=== PATIENT | female | born 1940 | race African-American/Black ===

== ENCOUNTER 2019-04-15 15:05 | Observation (INO) ==
[2019-04-15] MEDS ORDERED: NITROGLYCERIN 2% OINT 1 INCH/GM PACK TOP STA (16:12)
[2019-04-15] MEDS ORDERED: ASPIRIN 325 MG TABLET PO STA (16:12)
[2019-04-15] MEDS ORDERED: MORPHINE 4 MG/1 ML VIAL IV STA (16:12)
[2019-04-15] MEDS ORDERED: METHOCARBAMOL 1,000 MG/10 ML VIAL IV STA (16:12)
[2019-04-15] MEDS ORDERED: ONDANSETRON 4 MG/2 ML VIAL IV STA (16:12)
[2019-04-15 17:21] LABS: Basophils # 0.1 10*3/uL (0.0-0.2); Basophils % 0.9 % (0.0-0.8); Eosinophils # 0.1 10*3/uL (0.0-0.87); Eosinophils % 1.6 % (0.00-10.9); Hemoglobin 12.6 GM/DL (12.0-16.0); Immature Granulocytes % 0.5 %; Immature Granulocytes Absolute 0.03 #; Lymphocytes # 1.5 10*3/uL (1.4-4.0); Lymphocytes % 26.4 % (21.3-54.2); Mean Corpuscular HGB Conc 32.3 GM/DL (32-36); Mean Corpuscular Volume 95.1 FL (87-102); Mean Platelet Volume 9.8 FL (9.6-12.0); Monocytes % 6.4 % (1.7-12.7); Neutrophils % 64.2 % (38.7-73.9); Platelet Count 294 T/CUMM (130-400); Red Cell Distribution Width 13.9 % (9.3-17.3); White Blood Count 5.7 T/CUMM (4-12)
[2019-04-15 17:41] LABS: Alanine Aminotransferase 18 U/L (13-56); Albumin 3.5 G/DL (3.4-5.0); Alkaline Phosphatase 97 U/L (45-117); Aspartate Amino Transferase 15 U/L (0-37); Bilirubin,Total < 0.39 MG/DL (0.2-1.0); Blood Urea Nitrogen 14 MG/DL (7-18); Calcium 8.8 MG/DL (8.5-10.1); Glucose 142 MG/DL (74-106); Osmolality,Calculated 275.8 MOS/KG (273-304); Total Protein 8.2 G/DL (6.4-8.3); Troponin I < 0.015 NG/ML (0.00-0.045)
[2019-04-15] MEDS ORDERED: ATORVASTATIN 40 MG TABLET PO SCH (21:12)
[2019-04-15] MEDS: INDOMETHACIN 25 MG CAPSULE PO SCH (22:20)
[2019-04-16] MEDS ORDERED: LEVOTHYROXINE 150 MCG TABLET PO SCH (06:00)
[2019-04-16] MEDS ORDERED: PANTOPRAZOLE 40 MG TABLET PO SCH (07:30)
[2019-04-16] MEDS: INDOMETHACIN 25 MG CAPSULE PO SCH (08:42)
[2019-04-16] MEDS ORDERED: ASPIRIN CHEW 81 MG TABLET PO SCH (09:00)
[2019-04-16] MEDS ORDERED: LOSARTAN 50 MG TABLET PO SCH (09:00)
[2019-04-16 12:21] VITALS: BP 134/76
== END 2019-04-16 15:21 | disposition home or self-care (01) ==
LOC: N.TELES 15:05 → N.ED 15:05 → N.TELES 20:47
PROVIDERS: ADMIT Internal Medicine; ATTEND Internal Medicine

== ENCOUNTER 2022-03-23 00:40 | Observation (INO) ==
[2022-03-23 01:01] LABS: Basophils # 0.1 10*3/uL (0.0-0.2); Basophils % 0.6 % (0.0-0.8); Eosinophils # 0.2 10*3/uL (0.0-0.87); Eosinophils % 2.3 % (0.00-10.9); Hematocrit 34.1 VOL% (35.7-47.0); Hemoglobin 10.9 GM/DL (12.0-16.0); Immature Granulocytes % 0.8 %; Immature Granulocytes Absolute 0.08 #; Lymphocytes # 2.3 10*3/uL (1.4-4.0); Lymphocytes % 23.9 % (21.3-54.2); Mean Corpuscular Volume 90.9 FL (87-102); Mean Platelet Volume 9.1 FL (9.6-12.0); Monocytes # 0.9 10*3/uL (0.11-0.8); Monocytes % 9.1 % (1.7-12.7); Neutrophils % 63.3 % (38.7-73.9); Platelet Count 372 T/CUMM (130-400); Red Blood Count 3.75 MC/CUMM (3.8-5.5); White Blood Count 9.5 T/CUMM (4-12)
[2022-03-23 01:50] LABS: Alanine Aminotransferase 21 U/L (13-56); Albumin 3.8 G/DL (3.4-5.0); Alkaline Phosphatase 96 U/L (45-117); Aspartate Amino Transferase 18 U/L (0-37); Bilirubin,Total < 0.39 MG/DL (0.20-1.00); Blood Urea Nitrogen 30 MG/DL (7-18); Calcium 9.4 MG/DL (8.5-10.1); Carbon Dioxide 24 MMOL/L (21-32); Chloride 106 MMOL/L (98-107); Glucose 232 MG/DL (74-106); Osmolality,Calculated 289.5 MOS/KG (273-304); Potassium 3.9 MMOL/L (3.5-5.1); Sodium 139 MMOL/L (136-145)
[2022-03-23] MEDS ORDERED: SODIUM CHLORIDE 0.9% 1,000 ML IV STA (02:30)
[2022-03-23] MEDS ORDERED: MORPHINE 2 MG/1 ML SYRINGE IV STA (02:31)
[2022-03-23] MEDS ORDERED: ONDANSETRON 4 MG/2 ML VIAL IV ONE (02:31)
[2022-03-23] MEDS ORDERED: fentaNYL 100 MCG/2 ML VIAL IV STA (02:49)
[2022-03-23] MEDS ORDERED: DEXTROSE 10% 250 ML BAG IV PRN (03:28)
[2022-03-23] MEDS ORDERED: DOCUSATE SODIUM 100 MG CAPSULE PO PRN (03:28)
[2022-03-23] MEDS ORDERED: BISACODYL 5 MG TABLET PO PRN (03:28)
[2022-03-23] MEDS ORDERED: hydrALAZINE 20 MG/1 ML VIAL IV PRN (03:28)
[2022-03-23] MEDS ORDERED: GLUCAGON 1 MG VIAL IM PRN (03:28)
[2022-03-23] MEDS: SODIUM CHLORIDE 0.9% 1,000 ML IV SCH ×2 (04:17→13:52)
[2022-03-23] MEDS ORDERED: ENOXAPARIN 100 MG/ML SYRINGE SUBCUT ONE (05:32)
[2022-03-23 06:43] LABS: Bacteria,Urine Occasional /HPF (Few); Mucus,Urine Occasional /LPF (Occasional); RBC,Urine 2 /HPF (0-4); Squamous Epithelial Cell,Urine Occasional /HPF (0-10)
[2022-03-23 06:44] LABS: Bilirubin,Urine Negative (Negative); Blood, Urine Small mg/dL (Negative); Glucose,Urine (UA) >1000 mg/dL (Negative); Ketones,Urine Negative (Negative); Nitrite,Urine Negative (Negative); Protein,Urine 30 mg/dL (Negative); Urine Appearance Clear (Clear); Urine Color Yellow (Yellow); Urine Urobilinogen 0.2 eU/dL (<2.0); Urine pH 6.5 (4.5-8.0)
[2022-03-23] MEDS: INSULIN LISPRO 100 UNIT/ML SUBCUT SCH ×4 (07:47→21:57)
[2022-03-23] MEDS ORDERED: LEVOFLOXACIN INJ 500 MG/100 ML PREMIX IV ONE (09:00)
[2022-03-23] MEDS: PANTOPRAZOLE 40 MG TABLET PO SCH (09:19)
[2022-03-23] MEDS: metroNIDAZOLE INJ 500 MG/100 ML PREMIX IV SCH ×2 (10:35→17:08)
[2022-03-23] MEDS: ACETAMINOPHEN 325 MG TABLET PO PRN (12:23)
[2022-03-23] MEDS: ONDANSETRON 4 MG/2 ML VIAL IV PRN (13:07)
[2022-03-23] MEDS ORDERED: ENOXAPARIN 30 MG/0.3 ML SYRINGE SUBCUT SCH (21:00)
[2022-03-23] MEDS: HYDROmorphone 1 MG/1 ML SYRINGE IV PRN (22:36)
[2022-03-24] MEDS: metroNIDAZOLE INJ 500 MG/100 ML PREMIX IV SCH ×3 (02:10→17:09)
[2022-03-24 05:23] LABS: Basophils # 0.1 10*3/uL (0.0-0.2); Eosinophils # 0.3 10*3/uL (0.0-0.87); Eosinophils % 4.5 % (0.00-10.9); Hematocrit 32.6 VOL% (35.7-47.0); Immature Granulocytes % 0.7 %; Immature Granulocytes Absolute 0.05 #; Lymphocytes % 27.1 % (21.3-54.2); Mean Corpuscular HGB Conc 30.7 GM/DL (32-36); Mean Corpuscular Volume 93.7 FL (87-102); Mean Platelet Volume 9.4 FL (9.6-12.0); Monocytes # 0.8 10*3/uL (0.11-0.8); Monocytes % 10.3 % (1.7-12.7); Neutrophils % 56.4 % (38.7-73.9); Platelet Count 334 T/CUMM (130-400); Red Blood Count 3.48 MC/CUMM (3.8-5.5); Red Cell Distribution Width 14.1 % (9.3-17.3); White Blood Count 7.4 T/CUMM (4-12)
[2022-03-24 05:43] LABS: Calcium 9.4 MG/DL (8.5-10.1); Osmolality,Calculated 285.1 MOS/KG (273-304); Potassium 4.2 MMOL/L (3.5-5.1)
[2022-03-24] MEDS: SODIUM CHLORIDE 0.9% 1,000 ML IV SCH ×2 (06:00→10:43)
[2022-03-24] MEDS: HYDROmorphone 1 MG/1 ML SYRINGE IV PRN (06:28)
[2022-03-24] MEDS: ASPIRIN CHEW 81 MG TABLET PO SCH (09:38)
[2022-03-24] MEDS: PANTOPRAZOLE 40 MG TABLET PO SCH (09:38)
[2022-03-24] MEDS: LEVOTHYROXINE 175 MCG TABLET PO SCH (09:38)
[2022-03-24] MEDS: METOPROLOL SUCCINATE XL 50 MG TABLET PO SCH (09:38)
[2022-03-24] MEDS: ROSUVASTATIN 20 MG TABLET PO SCH (09:38)
[2022-03-24] MEDS: INSULIN LISPRO 100 UNIT/ML SUBCUT SCH ×4 (09:39→22:12)
[2022-03-24] MEDS: ONDANSETRON 4 MG/2 ML VIAL IV PRN (09:39)
[2022-03-24] MEDS: LEVOFLOXACIN INJ 250 MG/50 ML PREMIX IV SCH (09:55)
[2022-03-24] MEDS: ACETAMINOPHEN 325 MG TABLET PO PRN (17:09)
[2022-03-25] MEDS: SODIUM CHLORIDE 0.9% 1,000 ML IV SCH ×3 (00:17→13:55)
[2022-03-25] MEDS: metroNIDAZOLE INJ 500 MG/100 ML PREMIX IV SCH ×3 (02:31→17:07)
[2022-03-25] MEDS: INSULIN LISPRO 100 UNIT/ML SUBCUT SCH ×4 (08:01→21:52)
[2022-03-25] MEDS: METOPROLOL SUCCINATE XL 50 MG TABLET PO SCH (08:46)
[2022-03-25] MEDS: ASPIRIN CHEW 81 MG TABLET PO SCH (08:46)
[2022-03-25] MEDS: PANTOPRAZOLE 40 MG TABLET PO SCH (08:46)
[2022-03-25] MEDS: ROSUVASTATIN 20 MG TABLET PO SCH (08:46)
[2022-03-25] MEDS: LEVOFLOXACIN INJ 250 MG/50 ML PREMIX IV SCH (08:46)
[2022-03-25] MEDS: LEVOTHYROXINE 175 MCG TABLET PO SCH (08:47)
[2022-03-25] MEDS: ACETAMINOPHEN 325 MG TABLET PO PRN (10:14)
[2022-03-26] MEDS: SODIUM CHLORIDE 0.9% 1,000 ML IV SCH ×2 (00:53→12:01)
[2022-03-26] MEDS: metroNIDAZOLE INJ 500 MG/100 ML PREMIX IV SCH ×2 (02:00→11:59)
[2022-03-26 04:38] LABS: Basophils # 0.1 10*3/uL (0.0-0.2); Basophils % 0.8 % (0.0-0.8); Eosinophils # 0.4 10*3/uL (0.0-0.87); Eosinophils % 4.4 % (0.00-10.9); Hematocrit 31.5 VOL% (35.7-47.0); Hemoglobin 10.1 GM/DL (12.0-16.0); Immature Granulocytes % 0.8 %; Immature Granulocytes Absolute 0.07 #; Lymphocytes # 2.2 10*3/uL (1.4-4.0); Lymphocytes % 25.3 % (21.3-54.2); Mean Corpuscular HGB Conc 32.1 GM/DL (32-36); Mean Corpuscular Volume 91.8 FL (87-102); Mean Platelet Volume 9.4 FL (9.6-12.0); Monocytes # 0.9 10*3/uL (0.11-0.8); Monocytes % 10.5 % (1.7-12.7); Neutrophils % 58.2 % (38.7-73.9); Platelet Count 326 T/CUMM (130-400); Red Blood Count 3.43 MC/CUMM (3.8-5.5); Red Cell Distribution Width 14.3 % (9.3-17.3); White Blood Count 8.9 T/CUMM (4-12)
[2022-03-26 04:55] LABS: Calcium 9.5 MG/DL (8.5-10.1); Potassium 3.9 MMOL/L (3.5-5.1)
[2022-03-26] MEDS: ACETAMINOPHEN 325 MG TABLET PO PRN (04:58)
[2022-03-26] MEDS: INSULIN LISPRO 100 UNIT/ML SUBCUT SCH ×2 (07:30→12:06)
[2022-03-26] MEDS: LEVOFLOXACIN INJ 250 MG/50 ML PREMIX IV SCH (10:16)
[2022-03-26] MEDS: ASPIRIN CHEW 81 MG TABLET PO SCH (10:16)
[2022-03-26] MEDS: LEVOTHYROXINE 175 MCG TABLET PO SCH (10:16)
[2022-03-26] MEDS: METOPROLOL SUCCINATE XL 50 MG TABLET PO SCH (10:16)
[2022-03-26] MEDS: ROSUVASTATIN 20 MG TABLET PO SCH (10:16)
[2022-03-26] MEDS: PANTOPRAZOLE 40 MG TABLET PO SCH (10:16)
[2022-03-26 11:52] VITALS: BP 147/76
== END 2022-03-26 13:13 | disposition home health service (06) ==
LOC: EDUNIT# → N.EDINP 00:40 → N.ED 00:40 → N.TELEN 13:28 → SUATTDRO 03-24 08:25
PROVIDERS: ADMIT Internal Medicine; ATTEND Internal Medicine